=== PATIENT | male | born 1990 | race Caucasian/White ===

== ENCOUNTER 2021-05-25 04:38 | Emergency (ER) | payer SELFPAY ==
[~2021-05-25] VITALS: Ht 139.7 cm; Wt 65.9 kg
--- NOTE | 2021-05-25 04:42 | PHYS DOC ---
General Adult EDM: Chief Complaint: SHORTNESS OF BREATH HPI: HPI: Patient is a 30 year old male who presents here with about 2 hours of dyspnea. He reports that the dyspnea began suddenly, and awoke him from sleep. No previous history of asthma or dyspnea symptoms. He denies chest pain. He does describe some mild pleuritic discomfort. He denies chest pressure. He denies dizziness, diaphoresis, syncope. He denies exertional dyspnea. He denies lower extremity pain or swelling. He denies cough, fevers or chills. He does report he had some mild nasal congestion in the last several days. He reports very rare, dry cough. He denies hemoptysis. He has been fully vaccinated against Covid. 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 He does not normally have problems with difficulty breathing. He denies any recent sick contacts. He denies any recent travel, denies recent surgery or hospitalization. He does report that his father developed what sounds like a DVT after an Achilles tendon injury, though he has no other family history of thrombophilia, DVT or PE, to his knowledge. Review of Systems: Review of Systems: Constitutional: Denies fever or chills. [] Eyes: Denies change in visual acuity. [] HENT: He reports nasal congestion. Denies sore throat. Respiratory: Reports rare, dry cough. He reports dyspnea. Cardiovascular: Denies chest pain or edema. [] GI: Denies abdominal pain, nausea, vomiting Musculoskeletal: Denies back pain or joint pain. Denies lower extremity swe lling or calf pain. Integument: Denies rash. [] Neurologic: Denies headache, focal weakness or sensory changes. [] Psychiatric: Denies depression or anxiety. [] Heart Score: C/O Chest Pain: No Risk Factors: Risk Factors: DM, Current or recent (<one month) smoker, HTN, HLP, family history of CAD, obesity. Risk Scores: Score 0 - 3: 2.5% MACE over next 6 weeks - Discharge Home Score 4 - 6: 20.3% MACE over next 6 weeks - Admit for Clinical Observation Score 7 - 10: 72.7% MACE over next 6 weeks - Early Invasive Strategies Physical Exam: PE: Constitutional: Well developed, well nourished, no acute distress, non-toxic appearance. [] HENT: Normocephalic, atraumatic, mucous membranes are moist Eyes: Clear are clear, anicteric Neck: Normal range of motion, no tenderness, supple, no stridor. Trachea is midline. No JVD. Cardiovascular:Heart rate regular rhythm, no murmur, +2 radial and +2 posterior tibial pulses bilaterally Lungs & Thorax: Bilateral breath sounds clear to auscultation, no rales, rhonchi or wheezes. No stridor. No tachypnea. No retractions. Speaks in full and clear sentences. No evidence of distress. No cyanosis. Abdomen: Soft, nondistended, nontender Skin: Warm, dry, no erythema, no rash. [] Back: Full range of motion, no deformity. Extremities: No tenderness, no cyanosis, no clubbing, ROM intact, no edema. No calf tenderness. Neurologic: Alert and oriented X 3, normal motor function, normal sensory function, no focal deficits noted. [] Psychologic: Is mildly anxious, he is cooperative and pleasant. [] EKG: EKG: EKG is interpreted at 0457 Rhythm is sinus Rate is 69 bpm [place] is normal [place] 222 ms No STEMI Radiology/Procedures: Radiology/Procedures: IMAGING REPORT Signed PATIENT: ROGELIO ARREDONDO ACCOUNT: [id number] : 1990 LOCATION: ER AGE: 30 SEX: M EXAM STATUS: PRE ER ORD. PHYSICIAN: CHARMAINE LOPEZ DO REASON: dyspnea PROCEDURE: PORTABLE CHEST 1V XR CHEST 1V History: Dyspnea Comparison: None. Technique: AP radiograph of the chest. Findings: The lungs are adequately and symmetrically inflated. No airspace consolidation, pleural effusion or pneumothorax. The cardiomediastinal silhouette and pulmonary vasculature are within normal limits. No acute osseous abnormality. Soft tissues are unremarkable. Impression: 1. No acute cardiopulmonary process. Electronically signed by: Derik Geiger MD (05/25/2021 5:08 AM) [id number] DICTATED and SIGNED BY: DERIK GEIGER MD DATE: 05/25/21 [id number] Course & Med Decision Making: Course & Med Decision Making Pertinent Labs and Imaging studies reviewed. (See chart for details) Patient is resting comfortably. He manifests no evidence of distress. He does not have any active dyspnea at this time. Oxygen saturation still normal on room air. I discussed all the findings, differential diagnosis and plan of care with him. No current indication for further imaging, invasive exams or admission at this time. He is comfortable with the plan for discharge home. I recommend that he might take an [id number] antihistamine for nasal congestion, he might use an [id number] cool-mist humidifier as well. He is comfortable with this plan. He verbalized understanding of instructions given. Deision Disclaimer: Aruna Disclaimer: This electronic medical record was generated, in whole or in part, using a voice recognition dictation system. Departure Departure Impression: Primary Impression: Dyspnea Qualified Codes: R06.00 - Dyspnea, unspecified Disposition: 01 HOME / SELF CARE / HOMELESS Condition: STABLE Patient Instructions: Shortness of Breath Additional Instructions: Please return to the ER for severe chest pain, more severe shortness of breath, if you develop wheezing, if you develop any high fever, coughing up blood, weakness, vomiting, dehydration or any other concerns. You may want to try [id number]-[id number] antihistamines to help with your nasal congestion, and a cool- mist humidifier may also help with nasal congestion. Follow-up with your primary care physician. CHARMAINE LOPEZ DO May 25, 2021 04:42
[2021-05-25 05:05] LABS: BASO # 0.1 x10^3/uL (0.0-0.2); BASO % 1 % (0-3); EOS # 0.4 x10^3/uL (0.0-0.7); EOS % 6 % (0-3); HEMATOCRIT 41.9 % (39.0-53.0); HEMOGLOBIN 14.1 g/dL (13.0-17.5); LYMPH % 45 % (24-48); MEAN CORPUSCULAR HEMOGLOBIN 29 pg (25-35); MEAN CORPUSCULAR HGB CONC 34 g/dL (31-37); MEAN CORPUSCULAR VOLUME 86 fL (79-100); MONO # 0.5 x10^3/uL (0.0-1.1); MONO % 7 % (0-9); NEUT # 2.7 x10^3/uL (1.8-7.7); NEUT % 41 % (31-73); PLATELET COUNT 214 x10^3/uL (140-400); RED BLOOD COUNT 4.89 x10^6/uL (4.30-5.70); RED CELL DISTRIBUTION WIDTH 13.7 % (11.5-14.5); WHITE BLOOD COUNT 6.6 x10^3/uL (4.0-11.0)
--- NOTE | 2021-05-25 05:11 | RAD ---
XR CHEST 1V History: Dyspnea Comparison: None. Technique: AP radiograph of the chest. Findings: The lungs are adequately and symmetrically inflated. No airspace consolidation, pleural effusion or p neumothorax. The cardiomediastinal silhouette and pulmonary vasculature are within normal limits. No acute osseous abnormality. Soft tissues are unremarkable. Impression: 1. No acute cardiopulmonary process. Electronically signed by: Derik Geiger MD (05/25/2021 5:08 AM) [id number]
[2021-05-25 05:16] LABS: CALCIUM 8.6 mg/dL (8.5-10.1); CREATININE 1.1 mg/dL (0.7-1.3); GFR 79.1; POTASSIUM 3.5 mmol/L (3.5-5.1)
[2021-05-25 05:56] LABS: INFLUENZA A PATIENT NEGATIVE (NEGATIVE); INFLUENZA B PATIENT NEGATIVE (NEGATIVE)
[2021-05-25 06:03] VITALS: BP 123/79
--- NOTE | 2021-05-26 01:39 | EKG ---
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
--- NOTE | 2021-05-26 10:15 | NUR ---
IP: Informed pt of negative covid test. Pt verbalized understanding.
== END 2021-05-25 06:05 | disposition home or self-care (01) ==
LOC: ER 04:38
DX: R06.02 Shortness of breath (principal); Z20.822 Contact with and (suspected) exposure to COVID-19; R05.9 Cough, unspecified; R09.81 Nasal congestion
CPT/HCPCS: 36415; 71045; 80048; 83880; 84484; 85025; 85379; 87426; 87804; 93005; 99285; U0003; U0005